=== PATIENT | female | born 1955 | race Caucasian/White ===

== ENCOUNTER → 2016-12-14 | Day surgery (SDC) | payer OTHER ==
[~2016-12-14] VITALS: Ht 176.5 cm; Wt 71.2 kg
[~2016-12-14] MED LIST: ACETAMINOPHEN 500 MG CPLT PO PRN; ATOR20TA15 PO; ATROPINE SULFATE 1% OPHT SOLN 2 ML BTL ONE; BALANCED SALT SOLN OPHT IRRIG 15 ML BTL ONE; CALC500T35 PO; CARDCAP2 PO; CHLORHEXIDINE GLUCONATE 2 % 1 PACK (2 CLOTHS) TOPICAL PRN; CHOL5000 PO; DEXAMETHASONE SOD PHOS 4 MG/ML VIAL ONE; DO NOT ADM ANY ANTICOAGULANT DRUGS PRN; EPINEPHrine HCL (1:1000) 1 MG/ML VIAL ONE; FAMOTIDINE 20 MG/2 ML VIAL ONE; INSULIN HUMAN REGULAR 1,000 UNITS/10 ML VIAL SQ PRN; LACTATED RINGER'S 1000 ML IV PRN; LEVO100T5 PO; METOPROLOL TARTRATE 25 MG TAB PO PRN; MIDAZOLAM HCL 2 MG/2 ML VIAL ONE; ONDANSETRON HCL 4 MG/2 ML VIAL IM PRN; ONDANSETRON HCL 4 MG/2 ML VIAL IV PUSH ONE; POVIDONE IODINE 5% (ANTISEPSIS KIT) 4 APPLICATIONS EACH NARE PRN; PROPOFOL 200 MG/20 ML AMP IV ONE; SERT-132 PO; SODIUM CHLORID 0.9% 500 ML IV PRN; STERILE WATER FOR INJ 20 ML VIAL ONE; TOBRAMYCIN/DEXAMETHASONE OPTH OINT 3.5 GM TUBE ONE; TRIAMCINOLONE ACETONIDE/PF 40 MG/ML OPTH VIAL ONE; TROPICAMIDE 1% OPTH SOLN 2 ML BTL LEFT EYE SCH; ceFAZolin INJ 1,000 MG VIAL ONE; ePHEDrine/NS 25 MG/5 ML SYR IV ONE; oxyCODONE/ACETAMINOPHEN 5 MG/325 MG TAB PO PRN
[2016-12-14 08:59] LABS: AUTOMATED NEUTROPHIL # 2.1 TH/MM3 (1.8-7.7); BASOPHIL % 1.1 % (0.0-2.0); EOSINOPHIL # 0.2 TH/MM3 (0-0.4); EOSINOPHIL % 4.9 % (0.0-4.0); HEMATOCRIT 44.2 % (35.0-46.0); HEMO FLAGS DIFF FINAL; LYMPH % 33.5 % (9.0-44.0); LYMPHOCYTE # 1.4 TH/MM3 (1.0-4.8); MEAN CELL VOLUME 95.1 FL (80.0-100.0); MEAN CORPUSCULAR HEMOGLOBIN 31.7 PG (27.0-34.0); MEAN CORPUSCULAR HGB CONC 33.4 % (32.0-36.0); NEUT % 51.5 % (16.0-70.0); PLATELET COUNT 228 TH/MM3 (150-450); RED BLOOD COUNT 4.65 MIL/MM3 (4.00-5.30); RED CELL DISTRIBUTION WIDTH 13.3 % (11.6-17.2)
[2016-12-14 09:10] VITALS: BP 158/77; PULSE 55; RESP 20; TEMP 98.9; O2SAT 98
[2016-12-14] MEDS: PHENYLEPHRINE HCL 2.5% OPTH SOLN 2 ML BTL LEFT EYE SCH ×4 (10:00→10:45)
[2016-12-14] MEDS: CYCLOPENTOLATE HCL 1% OPHT SOLN 2 ML BTL LEFT EYE SCH ×4 (10:00→10:45)
[2016-12-14] MEDS: TROPICAMIDE 1% OPHT SOLN 15 ML BTL LEFT EYE SCH ×4 (10:00→10:45)
[2016-12-14] MEDS: ATROPINE SULFATE 1% OPHT SOLN 5 ML BTL LEFT EYE SCH ×3 (10:15→10:45)
--- NOTE | 2016-12-14 11:16 | EKG ---
Date Performed: 12/14/2016 Time Performed: 09:24:49 PTAGE: 61 years EKG: SINUS BRADYCARDIA BORDERLINE ECG NO PREVIOUS TRACING DOCTOR: Jose David Gautam Interpretating Date/Time 12/14/2016 11:15:55
[2016-12-14 14:17] VITALS: BP 126/67; PULSE 60; RESP 18; TEMP 98.8; O2SAT 97
--- NOTE | 2016-12-15 21:44 | MP ---
cc: JASMINE ANN MD DATE OF SURGERY 12/14/2016. PREOPERATIVE DIAGNOSIS Full-thickness macular hole, left eye. POSTOPERATIVE DIAGNOSIS 1. Full-thickness macular hole, left eye. 2. Retinal break and localized detachment left eye. SURGEON Dr. Liane Ann ANESTHESIA General laryngeal mask. PROCEDURE Trans pars plana vitrectomy with ICG guided ILM peel, flattening of retina under Perfluoron and laser photocoagulation round retinal break, left eye and gas fluid exchange ANESTHESIA General laryngeal mask anesthesia INDICATIONS Ms. Beltran is a 61-year-old woman with a history of a full-thickness macular hole, stage IV, in her left eye. She presented with visual acuity of 20/200 J10. She said that the problem began about 2-3 months ago. She wished to proceed electively with a vitrectomy and gas fluid exchange followed by a face-down positioning to try and close the macular hole and improve her visual functioning. The risks and benefits of surgery were discussed with the patient including the fact that her already present cataract would probably progress more rapidly. She wished to proceed. Informed consent was obtained. No guarantee was made as to visual outcome. PROCEDURE IN DETAIL She was brought to [facility] operating room one and placed on the operating table. Appropriate anesthesia monitoring devices were applied and she was placed under general anesthesia using a laryngeal mask. The left eye was identified as the operative site and then prepped and draped in the usual and sterile fashion. A lid speculum was placed. Microscope was brought around and adjusted. At this point, an appropriate time-out was called with the surgical team agreeing to the surgical site and planned procedure. Using the Brandon 23-gauge vitrectomy system, the trocar cannulas were placed 4 mm posterior to the limbus after first displacing the conjunctiva and with a beveled scleral entrance. The first was placed at approximately 3:15 o'clock and verified to be in the posterior chamber. An infusion cannula was affixed to it. Two additional trocar cannulas were placed at 10 and 2 o'clock in similar fashion. A small amount of Kenalog was injected through the superotemporal cannula into the posterior pole to aid in the visualization of the vitreous. The eye was entered with the Endoilluminator light pipe and vitrectomy cutter and a core vitrectomy was carried out. During the vitrectomy, it was noted that the superotemporal peripheral retina was elevated so the procedure was stopped. The infusion cannula was moved to the superonasal port and the two cannula entrances were inspected. The cannula inferotemporally was in the posterior pole and so the infusion cannula was put back on it. The superotemporal cannula was removed and replaced and verified to be in the posterior chamber. The fundus inspection with the indirect showed that there was a retinal break at approximately 12:30 to 1 o'clock and it was assumed that either the Kenalog injection or the introduction of the light pipe may have caught vitreous and caused that break. The detachment in that area was drained with a soft tipped linear extrusion needle as best as possible to allow the procedure to continue. Once the core and peripheral vitreous were removed, ICG was placed on the posterior pole which was still attached and the Casper membrane scraper was used to remove the IOM. Next, Perfluoron liquid was introduced to flatten the retina after which using both the laser indirect and the endolaser probe laser was placed around the retinal break superotemporally using a power of 350 milliwatts and 0.15-second exposure as prophylaxis. Additional laser was placed in the inferior periphery. The Perfluoron was then exchanged out for air and then BSS was allowed back in to make sure all the Perfluoron was removed. That was again vacuumed out and exchanged for air which was then exchanged for a 15% mixture of C3F8 gas. The cannulas were removed and all three sclerotomies were closed with an interrupted 7-0 Vicryl suture. Atropine drops were placed in the eye. Subconjunctival actions of Ancef 125 mg in 0.5 ml and Decadron 2 mg in 0.5 ml were given at separate sites. The lid speculum was removed and the patient was undraped. TobraDex ointment was placed on the cornea and then the left eye was patched and shielded. The patient had the laryngeal mass removed in the room and was returned to recovery semi-awake and in a face down position. NOTE: It should be noted there was a significant amount of feathering during the air-fluid exchange indicating possible early cataract formation. MD JORGE ALBERTO Castillo/ /1:26 PM /9:28 PM
== END | disposition home or self-care (01) ==
LOC: HSDC 08:11
PROVIDERS: ATTEND Ophthalmology
DX: H35.342 Macular cyst, hole, or pseudohole, left eye (principal); H33.002 Unspecified retinal detachment with retinal break, left eye; F32.9 Major depressive disorder, single episode, unspecified; E78.5 Hyperlipidemia, unspecified; E03.9 Hypothyroidism, unspecified; F17.200 Nicotine dependence, unspecified, uncomplicated
CPT/HCPCS: 00145; 67042; 85025; 93005; J0171; J0690; J1100; J2250; J2405; J3010; J3300; J7120